=== PATIENT | female | born 1985 | race Caucasian/White ===

== ENCOUNTER 2018-02-13 19:27 | Emergency (ER) | payer SELFPAY ==
[~2018-02-13] VITALS: Ht 162.6 cm; Wt 54.4 kg
[2018-02-13 19:38] VITALS: Ht 162.6 cm; Wt 54.4 kg
[2018-02-13 20:39] LABS: BASOPHIL % 0.7 % (0-2); CALCIUM 8.2 mg/dL (8.5-10.1); CARBON DIOXIDE 27.6 mmol/L (21-32); CHLORIDE SERUM 101 mmol/L (98-107); CREATININE SERUM 0.6 mg/dL (0.6-1.0); GFR1 > 60 mL/min; GLUCOSE SERUM 83 mg/dL (74-106); POTASSIUM SERUM 3.4 mmol/L (3.5-5.1); RED CELL DISTRIBUTION WIDTH 13.3 % (11.5-14.5); SODIUM SERUM 139 mmol/L (136-145)
[2018-02-13 20:42] LABS: PLATELET COUNT 462 x10^3mcL (130-400)
[2018-02-13 20:45] LABS: ALKALINE PHOSPHATASE 62 U/L (46-116); ALT/SGPT 36 U/L (14-59); AST/SGOT 28 U/L (15-37); BILIRUBIN TOTAL 0.2 mg/dL (0.20-1.00); TOTAL PROTEIN, SERUM 7.5 g/dL (6.4-8.2)
[2018-02-13 21:04] LABS: UA SPECIFIC GRAVITY <=1.005 (1.005-1.035); microscopic required? YES; urine erythrocyte 3+ (NEGATIVE)
[2018-02-13 21:08] LABS: AMPHETAMINE QUAL UR NONE DETECTED (NEG <=1000)
[2018-02-14 18:15] VITALS: BP 119/93
== END 2018-02-14 18:25 | disposition home or self-care (01) ==
LOC: ED 19:27
PROVIDERS: Specialist
DX: F10.229 Alcohol dependence with intoxication, unspecified (principal); F32.9 Major depressive disorder, single episode, unspecified
CPT/HCPCS: 83880; G0480; J0690; J1885; J3490